=== PATIENT | male | born 1940 | race Caucasian/White ===

== ENCOUNTER → 2017-02-14 | Outpatient (CLI) | payer MEDICARE, BC ==
[2016-02-19 11:44] VITALS: BP 160/73
[~2017-02-14] MED LIST: ASPI81TA50 PO; ATOR20TA PO; CARV20CP PO; LOSA25TA4 PO; TAMS0.4C97 PO
[2017-02-14 11:33] LABS: BASO # 0.1 x10^3/uL (0.0-0.2); BASO % 1 % (0-3); EOS # 0.3 x10^3/uL (0.0-0.7); EOS % 4 % (0-3); HEMATOCRIT 43.8 % (39.0-53.0); HEMOGLOBIN 14.4 g/dL (13.0-17.5); LYMPH # 2.1 x10^3/uL (1.0-4.8); LYMPH % 27 % (24-48); MEAN CORPUSCULAR HEMOGLOBIN 30 pg (25-35); MEAN CORPUSCULAR HGB CONC 33 g/dL (31-37); MEAN CORPUSCULAR VOLUME 90 fL (79-100); MONO # 0.7 x10^3/uL (0.0-1.1); MONO % 9 % (0-9); NEUT # 4.6 x10^3uL (1.8-7.7); NEUT % 59 % (31-73); PLATELET COUNT 188 x10^3/uL (140-400); RED BLOOD COUNT 4.89 x10^6/uL (4.30-5.70); WHITE BLOOD COUNT 7.8 x10^3/uL (4.0-11.0)
[2017-02-14 11:37] LABS: ALBUMIN 3.9 g/dL (3.4-5.0); ALBUMIN/GLOBULIN RATIO 1.3 (1.0-1.7); CALCIUM 8.5 mg/dL (8.5-10.1); CREATININE 1.1 mg/dL (0.7-1.3); GFR 65.3; POTASSIUM 4.5 mmol/L (3.5-5.1); TOTAL BILIRUBIN 0.5 mg/dL (0.2-1.0)
== END | disposition home or self-care (01) ==
LOC: LAB 11:03
PROVIDERS: ATTEND Nurse Practitioner
DX: R55 Syncope and collapse (principal)
CPT/HCPCS: 36415; 80053; 85027

== ENCOUNTER → 2017-07-20 | Outpatient (CLI) | payer MEDICARE, BC ==
[2016-02-19 11:44] VITALS: BP 160/73
[~2017-07-20] MED LIST changes: +IOHEXOL 240 MG/ML 50ML VIAL. ONE; +IOHEXOL 300 MG/ML 75 ML VIAL. IV ONE
[2017-07-20 08:22] LABS: CREATININE 1.2 mg/dL (0.7-1.3); GFR 58.9
--- NOTE | 2017-07-20 10:25 | RAD ---
Examination: CT of the abdomen pelvis with IV and oral contrast History: History of lower abdominal pain. Comparison: None available Technique: Axial CT images of the abdomen pelvis were performed with oral and IV contras . Sagittal and coronal reformats performed PQRS Compliance Statement: One or more of the following individualized dose reduction techniques were utilized for this examination: 1. Automated exposure control 2. Adjustment of the mA and/or kV according to patient size 3. Use of iterative reconstruction technique Findings: The visualized bibasal lungs grossly appears unremarkable. No evidence of free air identified in the abdomen. The visualized liver, adrenals grossly appears unremarkable. The gallbladder is mildly distended. Small hiatal hernia is identified. The visualized pancreas grossly appears unremarkable. Calcified granulomas identified in the spleen. There are multiple dilated small bowel loops identified in the mid and lower abdomen measuring up to 3.5 cm in transverse dimension with a possible transition point in the right lower quadrant of the abdomen possibly on series 2 image 74. There is a loop of small bowel bowel extends into the proximal right inguinal hernia. The transition point is hard to determine. The bilateral kidneys enhance medically. There is a cystic structure identified in the left kidney measuring 2.5 cm likely a cyst. The visualized pancreas grossly appears unremarkable. Feces and gas noted throughout the colon. Multiple sigmoid colon diverticulosis. The appendix is normal. There is mild thickened appearance of the wall of the distal rectum. Small amount of free fluid identified in the pelvis. Mildly enlarged prostate gland with central prostatic calcifications. Moderate degenerative changes lumbar spine. Impression: 1. Multiple dilated small bowel loops in the mid and lower abdomen with collapsed distal small bowel loops likely small bowel obstruction. A loop of small bowel extends into the right inguinal hernia. A transition point is difficult to determine 2. Mild thickened appearance of the wall of the distal rectum, nonspecific be secondary to nondistention or mild proctitis. 3. Left renal cyst. 4. Small hiatal hernia. Results called to ordering physician at time of dictation.
== END | disposition home or self-care (01) ==
LOC: CT 07:42
PROVIDERS: ATTEND Family Medicine
DX: N28.1 Cyst of kidney, acquired (principal); K40.90 Unilateral inguinal hernia, without obstruction or gangrene, not specified as recurrent; K62.89 Other specified diseases of anus and rectum; N40.0 Benign prostatic hyperplasia without lower urinary tract symptoms; K57.30 Diverticulosis of large intestine without perforation or abscess without bleeding
CPT/HCPCS: 36415; 74177; 82565; Q9966; Q9967

== ENCOUNTER → 2017-08-11 | Outpatient (CLI) | payer MEDICARE, BC ==
[2016-02-19 11:44] VITALS: BP 160/73
[~2017-08-11] MED LIST changes: +BARIUM SULFATE 60% 355 ML SUSP PO ONE; -IOHEXOL 240 MG/ML 50ML VIAL. ONE; -IOHEXOL 300 MG/ML 75 ML VIAL. IV ONE
--- NOTE | 2017-08-11 11:02 | RAD ---
Small bowel follow-through Indication: Abdominal pain, small bowel obstruction July 2017. Technique: Small bowel follow-through with thin barium contrast with 1.2 minutes of fluoroscopy time and 8 images. Comparison: CT abdomen/pelvis from 07/20/2017 Findings: The spot image demonstrates moderate amount of stool in the colon. No abnormally dilated bowel loops or air-fluid levels. Multilevel degenerative changes seen in the spine and SI joints. Partially visualized are cardiac pacemaker leads projecting over the heart. 0 minute images demonstrate prompt opacification of the stomach and proximal small bowel loops. There is no bowel wall thickening or loss of normal bowel wall features. There is a focal segment small bowel loop projecting over the right obturator canal which corresponds to bowel containing small right inguinal hernia. Contrast is seen in the ascending colon on 60 minutes images. Terminal ileum is visualized and demonstrated no evidence of stricture. Impression: 1. No bowel obstruction. 2. Transit time to colon is 60 minutes. 3. Partial right inguinal hernia containing focal loop of small bowel.
== END | disposition home or self-care (01) ==
LOC: RAD 08:58
PROVIDERS: ATTEND Internal Medicine Gastroenterology
DX: K40.90 Unilateral inguinal hernia, without obstruction or gangrene, not specified as recurrent (principal); Z95.0 Presence of cardiac pacemaker
CPT/HCPCS: 74250

== ENCOUNTER → 2017-11-27 | Outpatient (CLI) | payer MEDICARE, BC ==
[2016-02-19 11:44] VITALS: BP 160/73
[~2017-11-27] MED LIST changes: -BARIUM SULFATE 60% 355 ML SUSP PO ONE
[2017-11-27 16:22] LABS: ALBUMIN 4.1 g/dL (3.4-5.0); ALBUMIN/GLOBULIN RATIO 1.3 (1.0-1.7); CREATININE 1.1 mg/dL (0.7-1.3); GFR 65.1; MAGNESIUM 2.1 mg/dL (1.8-2.4); POTASSIUM 4.4 mmol/L (3.5-5.1); TOTAL BILIRUBIN 0.4 mg/dL (0.2-1.0); TOTAL PROTEIN 7.3 g/dL (6.4-8.2)
== END | disposition home or self-care (01) ==
LOC: LAB 15:22
PROVIDERS: ATTEND Nurse Practitioner
DX: R55 Syncope and collapse (principal); I10 Essential (primary) hypertension; Z87.891 Personal history of nicotine dependence; Z95.0 Presence of cardiac pacemaker
CPT/HCPCS: 36415; 80053; 83735

== ENCOUNTER → 2019-02-11 | Outpatient (CLI) | payer MEDICARE, BC ==
[2016-02-19 11:44] VITALS: BP 160/73
[~2019-02-11] MED LIST changes: +LOSA25TA11 PO; -LOSA25TA4 PO
--- NOTE | 2019-02-11 09:23 | RAD ---
CHEST PA LATERAL History: FORMER 20+ YEAR SMOKER, QUIT 6 YEARS AGO, cough Comparison: May 11, 2016 Findings: 2 PA views and single lateral view of the chest are submitted. There is again dual lead left electronic cardiac device, leads similar position. There is atherosclerotic calcification of the aortic arch. Cardiac silhouette is within normal limits, stable. There is no lobar infiltrate, pleural fluid, pneumothorax. Impression: 1. No acute radiographic abnormality is identified. CT would more sensitive for detection of pulmonary nodules. Electronically signed by: Lenny Farmer MD (02/11/2019 9:20 AM) [place] [id number]
== END | disposition home or self-care (01) ==
LOC: DXRAD 08:54
PROVIDERS: ATTEND Family Medicine
DX: R05 Cough (principal); I70.0 Atherosclerosis of aorta; Z87.891 Personal history of nicotine dependence
CPT/HCPCS: 71046

== ENCOUNTER 2022-04-03 18:17 | Emergency (ER) | payer MEDICARE, BC ==
[~2022-04-03] VITALS: Ht 177.8 cm; Wt 99.0 kg
[2022-04-03 19:30] VITALS: BP 154/77
[2022-04-03] MEDS ORDERED: LIDOCAINE 1% Multi-Dose 20 ML VIAL. IJ ONE (19:45)
--- NOTE | 2022-04-03 19:54 | PHYS DOC ---
Past History Past Medical History: CAD, High Cholesterol, Hypertension, Prostatitis Past Surgical History: No Surgical History, Other Alcohol Use: Occasionally Drug Use: None General Adult EDM: Chief Complaint: LACERATION/AVULSION HPI: HPI: Patient is an 82-year-old male who presents to the emergency department for a laceration to his left 3RD finger. Patient reports that he was cutting onions and the knife slipped and cut his finger. He is unsure of his last tetanus shot. He denies any decreased range of motion or decreased sensation to his finger. Review of Systems: Review of Systems: Musculoskeletal: See HPI Integument: See HPI Neurologic: See HPI Allergies: Allergies: Allergies Coded Allergies Type Severity Reaction Last Updated Verified Penicillins Allergy Unknown 07/20/17 Yes Physical Exam: PE: Constitutional: Well developed, well nourished, no acute distress, non-toxic appearance. [] HENT: Normocephalic, atraumatic, bilateral external ears normal, oropharynx moist, no oral exudates, nose normal. [] Eyes: PERRL, EOMI, conjunctiva normal, no discharge. [] Neck: Normal range of motion, no stridor Cardiovascular: Normal peripheral perfusion Lungs & Thorax: Normal work of breathing, no tachypnea Abdomen: Soft and flat Skin: Warm, dry, no erythema, no rash. [] Back: No tenderness, normal range of motion Extremities: No tenderness, no cyanosis, no clubbing, ROM intact, no edema. [] Left finger: 1 cm laceration noted to the tip of l. THIRD finger with active bleeding, wound is not well approximated, no foreign bodies visualized, abrasion noted to nail but nail and nailbed are intact, range of motion intact, neuro intact Neurologic: Alert and oriented X 3, normal motor function, normal sensory function, no focal deficits noted. [] Psychologic: Affect normal, judgement normal, mood normal. [] EKG: EKG: [] Radiology/Procedures: Radiology/Procedures: [] Heart Score: C/O Chest Pain: N/A Risk Factors: Risk Factors: DM, Current or recent (<one month) smoker, HTN, HLP, family history of CAD, obesity. Risk Scores: Score 0 - 3: 2.5% MACE over next 6 weeks - Discharge Home Score 4 - 6: 20.3% MACE over next 6 weeks - Admit for Clinical Observation Score 7 - 10: 72.7% MACE over next 6 weeks - Early Invasive Strategies Course & Med Decision Making: Course & Med Decision Making Pertinent Labs and Imaging studies reviewed. (See chart for details) [] Patient resents to the emergency department for a laceration to his left 3RD finger that he cut on a knife while cutting onions. Patient is unsure of his last tetanus and this was updated in the emergency department. Wound was cleansed in the emergency department and laceration repair with sutures was performed. Patient has no visualized foreign bodies, range of motion intact, neuro intact. Dressing was placed. Patient educated on laceration care and suture removal. I discussed with patient all findings and diagnostic testing as well as the need to follow-up with PCP for further evaluation and treatment or return to the ER if any new or worsening symptoms. Strict return precautions were also discussed at length. Patient voiced understanding and agreement with the plan. Patient is hemodynamically stable at the time of disposition. Dragon Disclaimer: Dragon Disclaimer: This electronic medical record was generated, in whole or in part, using a voice recognition dictation system. Laceration Repair Lac Repair Time:2009 Confirmed: Patient, procedure, site, and site correct Consent: Patient has given verbal consent Laceration location: Left third finger Shape: Curved Depth: With subcutaneous involvement Details: Clean with no foreign material Neurovascular, tendon exam: Intact Anesthesia: 1% lidocaine Preparation: Sterile field established Irrigation: Wound irrigated with saline wound wash Skin closure: Simple interrupted sutures placed Size of suture: 6-0 Ethilon Number of sutures: 7 Complexity: Single layer Post procedure exam: Circulation, motor, sensory exam intact, bleeding controlled. Complications: None Patient tolerated: Well Performed by: self Total time: 20 minutes Departure Departure: Impression: Primary Impression: Laceration Disposition: HOME / SELF CARE / HOMELESS Condition: GOOD Referrals: HARINDER BRICENO MD (PCP) Patient Instructions: Laceration Care, Adult Additional Instructions: You were seen in the emergency department today for a laceration to your finger which was repaired with sutures. Please keep this area clean and dry and wash with mild soap and warm water. You can apply Polysporin or bacitracin ointment to the laceration site and keep the dressing in place. Follow-up with your primary care provider or return to the emergency department to have your sutures removed in 7 to 10 days. Monitor for any signs of infection which include redness, warmth, swelling or drainage. Return to the emergency department if you develop any signs of infection, decreased sensation in your finger or decreased range of motion. [employer] April 03, 2022 19:54
[2022-04-03] MEDS ORDERED: DIPHTH,PERTUSS(ACELL),TET TOX 0.5 ML DISP.SYRIN. VAX IM ONE (20:15)
== END 2022-04-03 21:00 | disposition home or self-care (01) ==
LOC: ER 18:17
DX: S61.213A Laceration without foreign body of left middle finger without damage to nail, initial encounter (principal); I25.10 Atherosclerotic heart disease of native coronary artery without angina pectoris; E78.00 Pure hypercholesterolemia, unspecified; I10 Essential (primary) hypertension; Z88.0 Allergy status to penicillin; W26.0XXA Contact with knife, initial encounter; Y93.89 Activity, other specified; Y92.89 Other specified places as the place of occurrence of the external cause; Y99.8 Other external cause status
CPT/HCPCS: 12001; 90471; 90715; 99283